=== PATIENT | female | born 1945 | race Caucasian/White ===

== ENCOUNTER 2017-08-01 22:32 | Emergency (ER) | payer MEDICARE ==
[~2017-08-01] VITALS: Ht 152.4 cm; Wt 72.2 kg
[~2017-08-01 22:32] MED LIST: AMOXICILLIN250 M1 PO; CIPROFLOXACIN500 M1 PO; LAMISIL250 MG PO; LEVOTHYROXIN75 MCG PO; MULTI COMPLETE PO; OXYCODONE HCL5 MG PO; OXYCODONE5 MG PO; SOMA350 MG PO
[2017-08-01 23:52] LABS: HEMATOCRIT 40.6 % (37.0-47.0); HEMOGLOBIN 13.3 g/dl (12.0-16.0); IMMATURE GRANULOCYTES 0.3 % (0.0-1.0); MEAN CELL VOLUME 98.3 fL CALC (80.0-100.0); MEAN CORPUSCULAR HGB 32.2 pG CALC (26.0-32.0); MEAN CORPUSCULAR HGB CONC 32.8 g/L CALC (32.0-36.0); NEUT# 5.03 thou/uL (2.00-7.15); RED BLOOD COUNT 4.13 mill/uL (4.20-5.60); RED CELL DISTRI WIDTH 13.2 % (11.5-15.5)
[2017-08-01 23:54] LABS: URINE BILIRUBIN - DIPSTICK NEGATIVE (NEGATIVE); URINE BLOOD DIPSTICK TRACE-INTACT (NEGATIVE); URINE COLOR YELLOW; URINE GLUCOSE - DIPSTICK NEGATIVE (NEGATIVE); URINE KETONE NEGATIVE (NEGATIVE); URINE LEUK ESTERASE NEGATIVE (NEGATIVE); URINE NITRITE - DIPSTICK NEGATIVE (Negative); URINE PROTEIN - DIPSTICK NEGATIVE (NEG-TRACE); URINE UROBILINOGEN - DIPSTICK 0.2 E.U./dL (0.2)
[2017-08-01 23:55] LABS: URINE CLARITY CLOUDY
[2017-08-02 00:01] LABS: ALBUMIN 3.9 g/dL (3.2-5.0); ALKALINE PHOSPHATASE 55 u/l (38-126); ANION GAP 14 (6-22 (CALC)); BILIRUBIN, TOTAL 0.3 mg/dL (0.0-1.4); BUN 16 mg/dL (8-23); BUN/CREATININE RATIO 23 (12-20 (CALC)); CARBON DIOXIDE 26 mmol/l (22-30); CHLORIDE 108 mmol/l (95-108); CREATININE 0.7 mg/dL (0.5-1.0); GFR > 60 ML/MIN (>=60 (CALC)); GFR FOR AFR.AMER. > 60 ML/MIN (>=60 (CALC)); LIPASE 110 u/l (23-300); POTASSIUM 4.6 mmol/l (3.5-5.1); SGOT/AST 102 u/l (9-36); SGPT/ALT 36 u/l (11-66); SODIUM 143 mmol/l (137-146); TOTAL PROTEIN 6.7 g/dL (6.3-8.2)
[2017-08-02 02:48] VITALS: BP 158/72
== END 2017-08-02 02:46 | disposition left against medical advice (07) ==
LOC: ED 22:32
PROVIDERS: Emergency Medicine
DX: I24.9 Acute ischemic heart disease, unspecified (principal); R94.31 Abnormal electrocardiogram [ECG] [EKG]; I25.2 Old myocardial infarction; R07.89 Other chest pain; Z91.19 Patient's noncompliance with other medical treatment and regimen
CPT/HCPCS: J1650

== ENCOUNTER 2017-11-05 22:54 | Emergency (ER) | payer MEDICARE ==
[~2017-11-05] VITALS: Ht 152.4 cm; Wt 72.0 kg
[2017-11-05 23:40] LABS: HEMATOCRIT 38.6 % (37.0-47.0); IMMATURE GRANULOCYTES 0.5 % (0.0-1.0); MEAN CELL VOLUME 95.1 fL CALC (80.0-100.0); MEAN CORPUSCULAR HGB CONC 33.7 g/L CALC (32.0-36.0); NEUT# 6.91 thou/uL (2.00-7.15); RED BLOOD COUNT 4.06 mill/uL (4.20-5.60); RED CELL DISTRI WIDTH 12.9 % (11.5-15.5)
[2017-11-05 23:51] LABS: ALBUMIN 3.9 g/dL (3.2-5.0); ALKALINE PHOSPHATASE 59 u/l (38-126); BILIRUBIN, TOTAL 0.5 mg/dL (0.0-1.4); BUN 25 mg/dL (8-23); BUN/CREATININE RATIO 29 (12-20 (CALC)); CARBON DIOXIDE 24 mmol/l (22-30); CHLORIDE 103 mmol/l (95-108); CREATININE 0.9 mg/dL (0.5-1.0); GFR > 60 ML/MIN (>=60 (CALC)); GFR FOR AFR.AMER. > 60 ML/MIN (>=60 (CALC)); SGOT/AST 34 u/l (9-36); SGPT/ALT 44 u/l (11-66); SODIUM 141 mmol/l (137-146); TOTAL PROTEIN 7.2 g/dL (6.3-8.2)
[2017-11-05 23:53] LABS: ANION GAP 18 (6-22 (CALC)); POTASSIUM 3.6 mmol/l (3.5-5.1)
[2017-11-06 01:30] VITALS: BP 126/59
[2017-11-06] MEDS ORDERED: ASPIRIN 81 LOW81 MG PO (01:49)
== END 2017-11-06 01:40 | disposition home or self-care (01) ==
LOC: ED 22:54
PROVIDERS: Family Medicine
DX: R07.89 Other chest pain (principal); I11.0 Hypertensive heart disease with heart failure; I50.9 Heart failure, unspecified; I25.2 Old myocardial infarction

== ENCOUNTER 2018-08-10 15:48 | Emergency (ER) | payer MEDICARE ==
[~2018-08-10] VITALS: Ht 152.4 cm; Wt 70.0 kg
[~2018-08-10 15:48] MED LIST changes: +ASPIRIN 81 LOW81 MG PO
[2018-08-10] MEDS ORDERED: CARVEDILOL3.125 MG PO (16:05)
[2018-08-10] MEDS ORDERED: LOSARTAN POT25 MG PO (16:05)
[2018-08-10] MEDS ORDERED: BRILINTA60 MG PO (16:05)
[2018-08-10] MEDS ORDERED: FUROSEMIDE40 MG PO (16:06)
[2018-08-10] MEDS ORDERED: FLEXERIL PO (18:49)
[2018-08-10] MEDS ORDERED: OXYCODONE5 MG PO (18:49)
[2018-08-10 19:07] VITALS: BP 118/76
== END 2018-08-10 19:15 | disposition home or self-care (01) ==
LOC: ED 15:48
DX: S00.93XA Contusion of unspecified part of head, initial encounter (principal); S40.811A Abrasion of right upper arm, initial encounter; S16.1XXA Strain of muscle, fascia and tendon at neck level, initial encounter; S70.01XA Contusion of right hip, initial encounter; I25.2 Old myocardial infarction; I50.9 Heart failure, unspecified; W01.0XXA Fall on same level from slipping, tripping and stumbling without subsequent striking against object, initial encounter; Y92.009 Unspecified place in unspecified non-institutional (private) residence as the place of occurrence of the external cause; Z86.73 Personal history of transient ischemic attack (TIA), and cerebral infarction without residual deficits

== ENCOUNTER 2018-08-27 20:21 | Emergency (ER) | payer MEDICARE ==
[~2018-08-27] VITALS: Ht 152.4 cm; Wt 65.9 kg
[~2018-08-27 20:21] MED LIST changes: +BRILINTA60 MG PO; +CARVEDILOL3.125 MG PO; +FLEXERIL PO; +FUROSEMIDE40 MG PO; +LOSARTAN POT25 MG PO
[2018-08-27 21:12] LABS: URINE BILIRUBIN - DIPSTICK NEGATIVE (NEGATIVE); URINE BLOOD DIPSTICK NEGATIVE (NEGATIVE); URINE COLOR YELLOW; URINE GLUCOSE - DIPSTICK NEGATIVE (NEGATIVE); URINE KETONE TRACE mg/dL (NEGATIVE); URINE LEUK ESTERASE NEGATIVE (NEGATIVE); URINE NITRITE - DIPSTICK NEGATIVE (Negative); URINE PH 5.5 (4.5-8.0); URINE PROTEIN - DIPSTICK NEGATIVE (NEG-TRACE); URINE SPECIFIC GRAVITY 1.025; URINE UROBILINOGEN - DIPSTICK 0.2 E.U./dL (0.2)
[2018-08-27 21:15] LABS: HEMATOCRIT 41.2 % (37.0-47.0); HEMOGLOBIN 13.5 g/dl (12.0-16.0); IMMATURE GRANULOCYTES 0.1 % (0.0-5.0); MEAN CELL VOLUME 95.6 fL CALC (80.0-100.0); MEAN CORPUSCULAR HGB 31.3 pG CALC (26.0-32.0); MEAN CORPUSCULAR HGB CONC 32.8 g/L CALC (32.0-36.0); NEUT# 3.95 thou/uL (2.00-7.15); RED BLOOD COUNT 4.31 mill/uL (4.20-5.60); RED CELL DISTRI WIDTH 13.2 % (11.5-15.5)
[2018-08-27 21:43] LABS: ALBUMIN 3.9 g/dL (3.2-5.0); ALKALINE PHOSPHATASE 76 u/l (38-126); ANION GAP 15 (6-22 (CALC)); BILIRUBIN, TOTAL 0.6 mg/dL (0.0-1.4); BUN 32 mg/dL (8-23); BUN/CREATININE RATIO 47 (12-20 (CALC)); CARBON DIOXIDE 24 mmol/l (22-30); CHLORIDE 102 mmol/l (95-108); CREATININE 0.7 mg/dL (0.5-1.0); GFR > 60 ML/MIN (>=60 (CALC)); GFR FOR AFR.AMER. > 60 ML/MIN (>=60 (CALC)); POTASSIUM 3.8 mmol/l (3.5-5.1); SGOT/AST 40 u/l (9-36); SODIUM 137 mmol/l (137-146); TOTAL PROTEIN 6.6 g/dL (6.3-8.2)
[2018-08-27 21:55] LABS: MYOGLOBIN 33 ng/mL (0 - 62)
[2018-08-27] MEDS ORDERED: ANTIVERT PO (23:08)
[2018-08-27 23:20] VITALS: BP 123/59
== END 2018-08-27 23:24 | disposition home or self-care (01) ==
LOC: ED 20:21
PROVIDERS: Family Medicine
DX: H83.09 Labyrinthitis, unspecified ear (principal); R11.0 Nausea; R42 Dizziness and giddiness

== ENCOUNTER 2019-07-25 | Emergency (ER) | payer MEDICARE ==
[~2019-07-25] MED LIST changes: +ANTIVERT PO
[2019-07-25 12:03] LABS: HEMATOCRIT 42.9 % (37.0-47.0); HEMOGLOBIN 14.1 g/dl (12.0-16.0); IMMATURE GRANULOCYTES 0.8 % (0.0-5.0); MEAN CELL VOLUME 96.4 fL CALC (80.0-100.0); MEAN CORPUSCULAR HGB 31.7 pG CALC (26.0-32.0); MEAN CORPUSCULAR HGB CONC 32.9 g/L CALC (32.0-36.0); NEUT# 10.24 thou/uL (2.00-7.15); RED BLOOD COUNT 4.45 mill/uL (4.20-5.60); RED CELL DISTRI WIDTH 13.6 % (11.5-15.5)
[2019-07-25 12:16] LABS: ALBUMIN 3.8 g/dL (3.2-5.0); ALKALINE PHOSPHATASE 55 u/l (38-126); BUN 20 mg/dL (8-23); BUN/CREATININE RATIO 30 (12-20 (CALC)); CHLORIDE 100 mmol/l (95-108); CREATININE 0.7 mg/dL (0.5-1.0); GFR > 60 ML/MIN (>=60 (CALC)); GFR FOR AFR.AMER. > 60 ML/MIN (>=60 (CALC)); SGOT/AST 36 u/l (9-36); SODIUM 134 mmol/l (137-146); TOTAL PROTEIN 7.1 g/dL (6.3-8.2)
[2019-07-25 12:21] LABS: ANION GAP 9 (6-22 (CALC)); BILIRUBIN, TOTAL 1.2 mg/dL (0.0-1.4); CARBON DIOXIDE 29 mmol/l (22-30)
[2019-07-25 12:25] LABS: PROTHROMBIN TIME 10.6 SECONDS (9.0-12.5)
[2019-07-25 12:28] LABS: MYOGLOBIN 30 ng/mL (0 - 62)
[2019-07-25] MEDS ORDERED: AMOXICILLIN500 MG PO (14:15)
[2019-07-25] MEDS ORDERED: LORTAB 1010 MG PO (14:15)
== END 2019-07-25 14:32 | disposition home or self-care (01) ==
PROVIDERS: Emergency Medicine
DX: M19.071 Primary osteoarthritis, right ankle and foot (principal); I50.9 Heart failure, unspecified; I25.2 Old myocardial infarction; Z86.718 Personal history of other venous thrombosis and embolism; M79.604 Pain in right leg

== ENCOUNTER 2020-04-21 14:25 | Observation (INO) | payer MEDICARE ==
[~2020-04-21] VITALS: Ht 147.3 cm; Wt 61.9 kg
[~2020-04-21 14:25] MED LIST changes: +AMOXICILLIN500 MG PO; +LORTAB 1010 MG PO
[2020-04-21 15:06] LABS: HEMATOCRIT 46.2 % (37.0-47.0); HEMOGLOBIN 15.2 g/dl (12.0-16.0); MEAN CELL VOLUME 94.7 fL CALC (80.0-100.0); MEAN CORPUSCULAR HGB 31.1 pG CALC (26.0-32.0); MEAN CORPUSCULAR HGB CONC 32.9 g/dL CAL (32.0-36.0); NEUT# 6.54 thou/uL (2.00-7.15); RED BLOOD COUNT 4.88 mill/uL (4.20-5.60); RED CELL DISTRI WIDTH 15.3 % (11.5-15.5)
[2020-04-21 15:10] LABS: GFR > 60 ML/MIN (>=60 (CALC)); GFR FOR AFR.AMER. > 60 ML/MIN (>=60 (CALC))
[2020-04-21] MEDS ORDERED: CRESTOR20 MG PO (15:19)
[2020-04-21] MEDS ORDERED: ISOSORB MONO20 MG PO (15:19)
[2020-04-21 15:20] LABS: ALBUMIN 4.2 g/dL (3.2-5.0); ALKALINE PHOSPHATASE 56 u/l (38-126); ANION GAP 15 (6-22 (CALC)); BILIRUBIN, TOTAL 1.5 mg/dL (0.0-1.4); BUN 20 mg/dL (8-23); BUN/CREATININE RATIO 25 (12-20 (CALC)); CARBON DIOXIDE 27 mmol/l (22-30); CHLORIDE 96 mmol/l (95-108); CREATININE 0.8 mg/dL (0.5-1.0); GFR > 60 ML/MIN (>=60 (CALC)); GFR FOR AFR.AMER. > 60 ML/MIN (>=60 (CALC)); POTASSIUM 3.4 mmol/l (3.5-5.1); SGOT/AST 38 u/l (9-36); SODIUM 134 mmol/l (137-146); TOTAL PROTEIN 7.5 g/dL (6.3-8.2)
[2020-04-21] MEDS ORDERED: OXYCODONE5 M1 PO (15:23)
[2020-04-21 20:10] VITALS: BP 132/78
[2020-04-21 23:15] VITALS: BP 110/43
[2020-04-22 03:53] VITALS: BP 122/67
[2020-04-22 06:22] LABS: CHOLESTEROL HDL RATIO 2.5 (<4.4 (CALC)); MAGNESIUM 2.1 mg/dL (1.6-2.3)
[2020-04-22 07:30] VITALS: BP 113/81
[2020-04-22 11:15] VITALS: BP 110/66
== END 2020-04-22 12:30 | disposition home or self-care (01) ==
LOC: ED 14:25 → ED-I 17:30 → ED 17:54 → MS2 17:55
PROVIDERS: Family Medicine; ADMIT Internal Medicine; ATTEND Internal Medicine
DX: R07.89 Other chest pain (principal); R00.2 Palpitations; I25.10 Atherosclerotic heart disease of native coronary artery without angina pectoris; I50.9 Heart failure, unspecified; I25.2 Old myocardial infarction; Z86.73 Personal history of transient ischemic attack (TIA), and cerebral infarction without residual deficits; Z91.041 Radiographic dye allergy status; Z95.5 Presence of coronary angioplasty implant and graft; Z20.828 Contact with and (suspected) exposure to other viral communicable diseases

== ENCOUNTER 2022-03-11 17:12 | Emergency (ER) | payer MEDICARE ==
[2022-03-11] VITALS (7 sets, daily range): BP systolic 106–136; BP diastolic 53–64
[~2022-03-11] VITALS: Ht 147.3 cm; Wt 63.5 kg
[~2022-03-11 17:12] MED LIST changes: +CRESTOR20 MG PO; +ISOSORB MONO20 MG PO; +OXYCODONE5 M1 PO
[2022-03-11 17:51] LABS: HEMATOCRIT 41.4 % (37.0-47.0); HEMOGLOBIN 13.7 g/dl (12.0-16.0); IMMATURE GRANULOCYTES 0.3 % (0.0-5.0); MEAN CELL VOLUME 97.4 fL CALC (80.0-100.0); MEAN CORPUSCULAR HGB 32.2 pG CALC (26.0-32.0); MEAN CORPUSCULAR HGB CONC 33.1 g/dL CAL (32.0-36.0); NEUT# 11.65 thou/uL (2.00-7.15); RED BLOOD COUNT 4.25 mill/uL (4.20-5.60); RED CELL DISTRI WIDTH 13.4 % (11.5-15.5)
[2022-03-11 18:13] LABS: ALBUMIN 4.4 g/dL (3.2-5.0); ALKALINE PHOSPHATASE 67 u/l (38-126); ANION GAP 13 (6-22 (CALC)); BILIRUBIN, TOTAL 1.6 mg/dL (0.0-1.4); BUN 15 mg/dL (8-23); BUN/CREATININE RATIO 20 (12-20 (CALC)); C-REACTIVE PROTEIN 6.2 mg/dL (0-0.9); CARBON DIOXIDE 27 mmol/l (22-30); CHLORIDE 96 mmol/l (95-108); CREATININE 0.7 mg/dL (0.5-1.0); GFR FOR AFR.AMER. > 60 ML/MIN (>=60 (CALC)); GFR OTHER RACES > 60 ML/MIN (>=60 (CALC)); POTASSIUM 3.5 mmol/l (3.5-5.1); SGOT/AST 31 u/l (9-36); SODIUM 131 mmol/l (137-146); TOTAL PROTEIN 7.6 g/dL (6.3-8.2)
[2022-03-11] MEDS ORDERED: VIBRAMYCIN100 M2 PO (19:22)
== END 2022-03-11 20:30 | disposition home or self-care (01) ==
LOC: ED 17:12
PROVIDERS: Nurse Practitioner
DX: L03.115 Cellulitis of right lower limb (principal); I50.9 Heart failure, unspecified; I25.2 Old myocardial infarction; Z86.73 Personal history of transient ischemic attack (TIA), and cerebral infarction without residual deficits; Z95.5 Presence of coronary angioplasty implant and graft; Z86.718 Personal history of other venous thrombosis and embolism; M79.604 Pain in right leg; M79.89 Other specified soft tissue disorders

== ENCOUNTER 2022-05-26 12:37 | Observation (INO) | payer MEDICARE ==
[2022-05-26] VITALS (15 sets, daily range): BP systolic 122–163; BP diastolic 60–117
[~2022-05-26] VITALS: Ht 147.3 cm; Wt 61.3 kg
[~2022-05-26 12:37] MED LIST changes: +VIBRAMYCIN100 M2 PO
[2022-05-26 12:57] LABS: HEMATOCRIT 42.6 % (37.0-47.0); IMMATURE GRANULOCYTES 0.3 % (0.0-5.0); MEAN CELL VOLUME 97.3 fL CALC (80.0-100.0); MEAN CORPUSCULAR HGB CONC 32.9 g/dL CAL (32.0-36.0); NEUT# 9.39 thou/uL (2.00-7.15); RED BLOOD COUNT 4.38 mill/uL (4.20-5.60); RED CELL DISTRI WIDTH 14.2 % (11.5-15.5)
[2022-05-26 13:16] LABS: ALBUMIN 4.3 g/dL (3.2-5.0); ALKALINE PHOSPHATASE 71 u/l (38-126); BUN 28 mg/dL (8-23); BUN/CREATININE RATIO 39 (12-20 (CALC)); CARBON DIOXIDE 28 mmol/l (22-30); CHLORIDE 104 mmol/l (95-108); CREATININE 0.7 mg/dL (0.5-1.0); GFR FOR AFR.AMER. > 60 ML/MIN (>=60 (CALC)); GFR OTHER RACES > 60 ML/MIN (>=60 (CALC)); POTASSIUM 3.8 mmol/l (3.5-5.1); SGOT/AST 54 u/l (9-36); TOTAL PROTEIN 7.7 g/dL (6.3-8.2)
[2022-05-26 13:59] LABS: ANION GAP 11 (6-22 (CALC)); BILIRUBIN, TOTAL 0.7 mg/dL (0.0-1.4); SODIUM 139 mmol/l (137-146)
[2022-05-26 14:44] LABS: URINE BILIRUBIN - DIPSTICK NEGATIVE (NEGATIVE); URINE BLOOD DIPSTICK NEGATIVE (NEGATIVE); URINE COLOR YELLOW; URINE GLUCOSE - DIPSTICK NEGATIVE (NEGATIVE); URINE KETONE NEGATIVE (NEGATIVE); URINE LEUK ESTERASE NEGATIVE (NEGATIVE); URINE PROTEIN - DIPSTICK NEGATIVE (NEG-TRACE); URINE SPECIFIC GRAVITY 1.015; URINE UROBILINOGEN - DIPSTICK 0.2 E.U./dL (0.2)
[2022-05-26 14:50] LABS: URINE NITRITE - DIPSTICK NEGATIVE (Negative)
[2022-05-26] MEDS ORDERED: BRILINTA90 MG PO (17:20)
[2022-05-26] MEDS ORDERED: ISOSORB MONO30 MG PO (17:22)
[2022-05-26] MEDS ORDERED: PREDNISONE5 MG PO ×2 (17:54→17:55)
[2022-05-27 05:11] VITALS: BP 158/71
[2022-05-27 06:06] LABS: CHOLESTEROL HDL RATIO 2.2 (<4.4 (CALC)); MAGNESIUM 2.5 mg/dL (1.6-2.3)
[2022-05-27 07:13] VITALS: BP 165/82
[2022-05-27 11:04] VITALS: BP 142/61
== END 2022-05-27 11:16 | disposition home or self-care (01) ==
LOC: ED 12:37 → ED-I 15:51 → ED 15:54 → MS2 15:55
PROVIDERS: Family Medicine; ADMIT Internal Medicine; ATTEND Internal Medicine
DX: R07.9 Chest pain, unspecified (principal); R10.12 Left upper quadrant pain; I11.0 Hypertensive heart disease with heart failure; I50.9 Heart failure, unspecified; I25.10 Atherosclerotic heart disease of native coronary artery without angina pectoris; E78.5 Hyperlipidemia, unspecified; I25.2 Old myocardial infarction; Z95.5 Presence of coronary angioplasty implant and graft; Z86.73 Personal history of transient ischemic attack (TIA), and cerebral infarction without residual deficits
CPT/HCPCS: J1650

== ENCOUNTER 2024-01-23 18:38 | Emergency (ER) | payer MEDICARE ==
[~2024-01-23] VITALS: Ht 147.3 cm; Wt 61.0 kg
[~2024-01-23 18:38] MED LIST changes: +AMLODIPINE BES2.5 MG PO; +BRILINTA90 MG PO; +ISOSORB MONO30 MG PO; +KEFLEX500 MG PO; +LEVOTHYROXIN25 MC1 PO; +PREDNISONE5 MG PO
[2024-01-23] MEDS ORDERED: LIDOcaine HCl 1% (Local Anesth.) 20 ML VIAL STI STA (19:47)
[2024-01-23] MEDS ORDERED: SODIUM CHLORIDE 500 ML BTL IR ONE (19:50)
[2024-01-23] MEDS ORDERED: NEOMYCIN-BACITRACIN-POLYMYXIN 0.5 GM/PAK PAK TOP ONE (19:50)
[2024-01-23] MEDS ORDERED: POVIDONE IODINE 0.5 OZ/BTL TOP ONE (19:50)
[2024-01-23] MEDS ORDERED: CEPHALEXIN MONOHYDRATE 500 MG/CAP PO ONE (20:40)
[2024-01-23 21:06] VITALS: BP 141/67
== END 2024-01-23 21:06 | disposition home or self-care (01) ==
LOC: ED 18:38
PROC: 0HQFXZZ Repair Right Hand Skin, External Approach (ICD-10-PCS; principal; 2024-01-23)
DX: S61.210A Laceration without foreign body of right index finger without damage to nail, initial encounter (principal); I50.9 Heart failure, unspecified; I25.2 Old myocardial infarction; W29.3XXA Contact with powered garden and outdoor hand tools and machinery, initial encounter; Y92.009 Unspecified place in unspecified non-institutional (private) residence as the place of occurrence of the external cause; Z95.5 Presence of coronary angioplasty implant and graft; Z86.718 Personal history of other venous thrombosis and embolism

== ENCOUNTER 2024-03-17 20:42 | Emergency (ER) | payer MEDICARE ==
[2024-03-17] VITALS (10 sets, daily range): BP systolic 97–138; BP diastolic 57–73
[~2024-03-17] VITALS: Ht 147.3 cm; Wt 56.0 kg
[2024-03-17 21:34] LABS: BASO% 0.5 % (0-3); EOS% 4.8 % (0-8); HEMATOCRIT 40.4 % (37.0-47.0); HEMOGLOBIN 13.1 g/dl (12.0-16.0); IMMATURE GRANULOCYTES 0.2 % (0.0-5.0); LYMPH% 32.1 % (15-41); MEAN CORPUSCULAR HGB 31.1 pG CALC (26.0-32.0); MEAN CORPUSCULAR HGB CONC 32.4 g/dL CAL (32.0-36.0); MONO% 14.1 % (2-13); NEUT# 3.05 thou/uL (2.00-7.15); NEUT% 48.3 % (42-76); RED BLOOD COUNT 4.21 mill/uL (4.20-5.60); RED CELL DISTRI WIDTH 13.3 % (11.5-15.5)
[2024-03-17 21:42] LABS: ALBUMIN 3.7 g/dL (3.2-5.0); BILIRUBIN, TOTAL 0.7 mg/dL (0.02-1.3); CREATININE 0.8 mg/dL (0.5-1.0); TOTAL PROTEIN 6.6 g/dL (6.3-8.2)
[2024-03-17 21:44] LABS: POTASSIUM 3.6 mmol/l (3.5-5.1)
[2024-03-17 21:56] LABS: URINE BILIRUBIN - DIPSTICK Negative (NEGATIVE); URINE BLOOD DIPSTICK Trace-intact (NEGATIVE); URINE GLUCOSE - DIPSTICK Negative (NEGATIVE); URINE KETONE Trace mg/dL (NEGATIVE); URINE NITRITE - DIPSTICK Negative (Negative); URINE PH 5.5 (4.5-8.0); URINE PROTEIN - DIPSTICK Negative (NEG-TRACE); URINE UROBILINOGEN - DIPSTICK 0.2 E.U./dL (0.2)
[2024-03-17 21:57] LABS: URINE COLOR Yellow; URINE LEUK ESTERASE Moderate (NEGATIVE)
[2024-03-17 22:07] LABS: URINE RBC 0-2 RBC/hpf (0-5); URINE SQUAMOUS EPITHELIAL CELL FEW EPI/hpf (0-FEW)
[2024-03-17 22:13] LABS: TSH, 3RD GENERATION 2.91 uIU/mL (0.47 - 4.68)
== END 2024-03-17 22:50 | disposition home or self-care (01) ==
LOC: ED 20:42
PROVIDERS: Family Medicine
DX: I11.0 Hypertensive heart disease with heart failure (principal); I50.9 Heart failure, unspecified; I25.2 Old myocardial infarction; Z95.5 Presence of coronary angioplasty implant and graft; Z86.73 Personal history of transient ischemic attack (TIA), and cerebral infarction without residual deficits